=== PATIENT | female | born 1935 | race Caucasian/White ===

== ENCOUNTER 2017-12-14 15:00 | Outpatient (CLI) | payer OTHER ==
[2017-12-14 15:40] LABS: BASOPHILS % 0.7 (0.0-1.5); EOSINOPHILS % 1.1 % (0.0-6.8); MEAN CORPUSCULAR VOLUME 92.3 fl (80.0-100.0); MONOCYTES % 2.5 % (0.0-11.0); NEUTROPHILS # 7.4 # k/uL (1.4-7.7)
[2017-12-14 17:27] LABS: eGFR (African) > 60; eGFR (Non-African) > 60
== END 2017-12-14 15:03 ==
LOC: LAB 15:00
PROVIDERS: ATTEND Internal Medicine Cardiovascular Disease
DX: R53.1 Weakness (principal)
CPT/HCPCS: 80048; 85025